=== PATIENT | male | born 1960 | race African-American/Black ===

== ENCOUNTER 2016-09-24 09:21 | Observation (INO) ==
--- NOTE | 2016-09-24 09:48 | EKG Report ---
Stationary ECG Study [facility] ER Test Date: 09/24/2016 9:41:55 AM Pat Name: DARION DOWLING Department: Room: Gender: M Customer Resource Specialist: MORIAH : 1960 Requested by: Brian De La Vega Order Number: [id number] Reading MD: GISSELL OROZCO Intervals [place] Rate: 82 P: 59 [place]: 165 QRS: 29 QRSD: 81 T: 57 QT: 367 QTc: 406 Interpretive Statements SINUS RHYTHM Electronically Signed On 09-24-16 12:10:44 EXERCISER HORSE by GISSELL OROZCO [email or web address]
--- NOTE | 2016-09-24 09:55 | Emergency Department Note ---
Arrival - Arrival ED Nursing Triage Note: c/o chest discomfort/right arm numbness that started today. c/o sharp shooting pain across chest. +SOB, denies n/v, diaphoresis. hx: HTN Mode of Arrival: Ambulatory <AnjelangelesBrian - Last Filed: 09/24/16 09:53> <Duane Rodriguez - Last Filed: 09/24/16 11:05> - Arrival Chief Complaint: Chest Pain Stated Complaint: pain in right side and right arm numb Time Seen by Provider: 09/24/16 09:45 - History of Present Illness HPI Narrative: 56-year-old male presents today with complaint of right sided chest pain. States he felt fine this morning when pain hit him suddenly while at work. Pain began in his right upper quadrant of his abdomen and radiated up into her right chest. States he had numbness in his right arm. Has no complaints of shortness of breath nausea or vomiting. Also denies diaphoresis. Pain in upper abdomen has resolved however continues to have pain or tightness in his mid sternum area (Brian De La Vega) Allergies/Adverse Reactions: Allergies Allergy/AdvReac Type Severity Reaction Status Date / Time No Known Allergies Allergy Verified 09/24/16 09:30 Home Medications: Home Medications Medication Instructions Recorded Confirmed Type Losartan/Hydrochlorothiazide 1 each PO DAILY 09/24/16 09/24/16 History [Losartan-Hctz 100-25 mg Tab] amLODIPine [Norvasc] 10 mg PO DAILY 09/24/16 09/24/16 History Review of System - Review of System 12 point system: reviewed and no additional remarkable complaints except as stated - Review of System Constitutional: Present: as per HPI. Absent: fever Cardiovascular: Present: chest pain Gastrointestinal: Present: abdominal pain. Absent: nausea, vomiting <Brian De La Vega - Last Filed: 09/24/16 09:53> Medical,Surgical,& Family Hx - Medical History Cardio: History of: Hypertension - Social History Smoking Status: Smoker, status unknown Frequency of Alcohol Use: None Type of Drug Use: None <Brian De La Vega - Last Filed: 09/24/16 09:53> Exam <Brian De La Vega - Last Filed: 09/24/16 09:53> <Duane Rodriguez - Last Filed: 09/24/16 11:05> Physical Examination: Gen.: Well-developed, well-nourished in no acute distress HEENT: Normocephalic. Pupils equal round and reactive to light with normal extraocular movement. Ear canals clear without discharge. Tympanic membranes with good light reflex and visualization of bony structures bilaterally. Throat without swelling, erythema or exudate. Neck: Supple without lymphadenopathy or nuchal rigidity Chest: Heart regular rate and rhythm without murmur. Lungs clear to auscultation and equal bilaterally. Abdomen: Soft and nontender without masses. Bowel sounds normoactive. Back: Without CVA or point tenderness. Extremities: Full range of motion. No joint effusion or tenderness Skin: Clean dry and intact (Brian De La Vega) Vital Signs: Vital Signs Temperature 96.7 F L 09/24/16 09:24 Pulse Rate 76 09/24/16 10:20 Respiratory Rate 16 09/24/16 10:20 Blood Pressure 131/91 09/24/16 10:20 O2 Sat by Pulse Oximetry 100 09/24/16 10:20 (Brian De La Vega) (Duane Rodriguez) Course <Brian De La Vega - Last Filed: 09/24/16 09:53> <Duane Rodriguez - Last Filed: 09/24/16 11:05> - Reevaluation(s) Reevaluation #1: Examination by me done at 1045 revealed tenderness to palpation in the right lower anterior chest wall and right upper abdomen. This did reproduce his pain. Patient does have some risk factors with hypertension and smoker and I feel he needs a second set of enzymes and observation overnight and a cardiology evaluation. Patient states he had a stress test done approximately 4 -5 years ago that was normal. Patient denies any chest pain with exertion however he does have dyspnea on exertion. (Duane Rodriguez) Results - Labs CBC & BMP: 09/24/16 09:58 09/24/16 09:58 Lab Results: I have reviewed the patients labs (CPK elevated, troponin negative) - EKG EKG results: interpreted by HOMER, sinus rhythm (nonspecific ST-T changes) - Diagnostic Findings Procedure: Chest x-ray: report reviewed by me (atelectasis) <Duane Rodriguez - Last Filed: 09/24/16 11:05> Disposition <Brian De La Vega - Last Filed: 09/24/16 09:53> Case discussed with: patient <JenniferDuane - Last Filed: 09/24/16 11:05> Clinical Impression: Chest pain, Chest wall pain, possible angina, Hypertension, Tobacco abuse Disposition: Still a Patient Condition: Guarded Additional Instructions: Admitted to the seat cover cutter.
[2016-09-24 10:12] LABS: Basophils # 0.1 10*3/uL (0.0-0.2); Basophils % 1.6 % (0.0-0.8); Eosinophils # 0.2 10*3/uL (0.0-0.87); Hematocrit 46.3 VOL% (42.0-52.0); Hemoglobin 15.5 GM/DL (14.0-18.0); Immature Granulocytes % 0.5 %; Immature Granulocytes Absolute 0.04 #; Lymphocytes # 2.3 10*3/uL (1.4-4.0); Lymphocytes % 31.4 % (21.2-54.2); Mean Corpuscular HGB Conc 33.5 GM/DL (32-36); Mean Corpuscular Hemoglobin 29 PG (27-34); Mean Corpuscular Volume 86.4 FL (87-102); Mean Platelet Volume 10.5 FL (9.6-12.0); Monocytes # 0.8 10*3/uL (0.11-0.8); Monocytes % 10.8 % (1.7-12.7); Neutrophils # 3.9 10*3/uL (1.4-7.4); Neutrophils % 52.7 % (38.7-73.9); Platelet Count 198 10*3/uL (130-400); Red Blood Count 5.36 10*6/uL (3.8-5.5); White Blood Count 7.4 10*3/uL (4.5-13.71)
--- NOTE | 2016-09-24 10:31 | XRay Report ---
Portable chest Date:[09/24/2016] Clinical history: Chest pain Comparison: None Technique: Portable AP sitting chest Findings: The heart is normal in size. Atelectasis at the lung base. Unremarkable mediastinum with degenerative changes. Impression: Atelectasis at the lung bases. PROCEDURE INTERPRETED AT [facility] DEPARTMENT OF RADIOLOGY Final Report Signed by: Dr. Mandy Amos
[2016-09-24 10:37] LABS: Alanine Aminotransferase 53 U/L (16-61); Albumin 4.3 G/DL (3.4-5.0); Alkaline Phosphatase 82 U/L (45-117); Aspartate Amino Transferase 38 U/L (0-37); Bilirubin,Direct < 0.1 MG/DL (0.0-0.20); Bilirubin,Indirect 0.4 MG/DL (0.0-1.0); Blood Urea Nitrogen 11 MG/DL (7-18); Calcium 9.4 MG/DL (8.5-10.1); Glucose 92 MG/DL (74-106); Osmolality,Calculated 279.3 MOS/KG (273-304); Potassium 4.1 MMOL/L (3.5-5.1); Sodium 141 MMOL/L (136-145); Troponin I Only < 0.015 NG/ML (0.00-0.045)
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
--- NOTE | 2016-09-24 13:01 | EKG Report ---
Stationary ECG Study [facility] ER Test Date: 09/24/2016 12:59:02 PM Pat Name: DARION DOWLING Department: Room: Gender: M Ostomy Nurse: DELGADO : 1960 Requested by: Christine Nguyen Order Number: [id number] Reading MD: DARON TAO Intervals [place] Rate: 68 P: 49 [place]: 180 QRS: 29 QRSD: 88 T: 58 QT: 409 QTc: 425 Interpretive Statements SINUS RHYTHM Electronically Signed On 09-24-16 13:28:57 MILK DRYING MACHINE OPERATOR by DARON TAO [email or web address]
[2016-09-24 13:22] LABS: Troponin I Only < 0.015 NG/ML (0.00-0.045)
[2016-09-24] MEDS ORDERED: MAGNESIUM SULF RIDER 4 GM in PREMIX 1 EACH IV PRN (15:19)
[2016-09-24] MEDS ORDERED: ONDANSETRON 4 MG/2 ML VIAL IV PRN (15:19)
[2016-09-24] MEDS ORDERED: MAGNESIUM SULF RIDER 2 GM in PREMIX 1 EACH IV PRN (15:19)
[2016-09-24] MEDS ORDERED: ACETAMINOPHEN 325 MG TABLET PO PRN (15:19)
[2016-09-24] MEDS ORDERED: DOCUSATE SODIUM 100 MG CAPSULE PO PRN (15:19)
[2016-09-24] MEDS ORDERED: ZALEPLON 5 MG CAPSULE PO PRN (15:19)
[2016-09-24] MEDS ORDERED: BISACODYL 5 MG TABLET PO PRN (15:19)
[2016-09-24] MEDS ORDERED: KETOROLAC 30 MG/1 ML VIAL IV STA (15:23)
[2016-09-24] MEDS ORDERED: PNEUMOCOCCAL VACCINE (13 VALENT) 0.5 ML SYRINGE IM ONE (17:35)
[2016-09-24] MEDS: ENOXAPARIN 40 MG/0.4 ML SYRINGE SUBCUT SCH (17:54)
[2016-09-24] MEDS: SODIUM CHLORIDE 0.45% 1,000 ML IV SCH (17:54)
[2016-09-25] MEDS: SODIUM CHLORIDE 0.45% 1,000 ML IV SCH ×2 (01:40→12:47)
[2016-09-25 05:48] LABS: Basophils # 0.1 10*3/uL (0.0-0.2); Basophils % 1.1 % (0.0-0.8); Eosinophils # 0.3 10*3/uL (0.0-0.87); Eosinophils % 5.4 % (0.00-10.9); Hematocrit 42.9 VOL% (42.0-52.0); Hemoglobin 13.9 GM/DL (14.0-18.0); Immature Granulocytes % 0.2 %; Immature Granulocytes Absolute 0.01 #; Lymphocytes # 2.2 10*3/uL (1.4-4.0); Lymphocytes % 35.7 % (21.2-54.2); Mean Corpuscular HGB Conc 32.4 GM/DL (32-36); Mean Corpuscular Hemoglobin 28 PG (27-34); Mean Corpuscular Volume 86.1 FL (87-102); Mean Platelet Volume 10.9 FL (9.6-12.0); Monocytes # 0.7 10*3/uL (0.11-0.8); Monocytes % 11.7 % (1.7-12.7); Neutrophils # 2.8 10*3/uL (1.4-7.4); Neutrophils % 45.9 % (38.7-73.9); Platelet Count 201 10*3/uL (130-400); Red Blood Count 4.98 10*6/uL (3.8-5.5); Red Cell Distribution Width 11.9 % (9.3-17.3); White Blood Count 6.1 10*3/uL (4.5-13.71)
[2016-09-25 06:29] LABS: Albumin 3.3 G/DL (3.4-5.0); Calcium 8.6 MG/DL (8.5-10.1); Osmolality,Calculated 275.7 MOS/KG (273-304); Potassium 4.2 MMOL/L (3.5-5.1); Thyroid Stimulating Hormone 3.19 uIU/ml (0.358-3.74); Total Protein 6.6 G/DL (6.4-8.3); VLDL CHOLESTEROL 79.4 MG/DL
--- NOTE | 2016-09-25 07:26 | EKG Report ---
Stationary ECG Study [facility] Test Date: 09/25/2016 7:24:51 AM Pat Name: DARION DOWLING Department: Room: 275 Gender: M Workforce Consultant: ELIZABETH : 1960 Requested by: Christine Nguyen Order Number: [id number] Reading MD: LISSETH CAZARES Intervals [place] Rate: 66 P: 28 MD: 182 QRS: 26 QRSD: 93 T: 59 QT: 408 QTc: 422 Interpretive Statements SINUS RHYTHM Electronically Signed On 09-25-16 20:47:14 DRILLER HELPER by LISSETH CAZARES [email or web address]
[2016-09-25 08:46] LABS: Troponin I Only < 0.015 NG/ML (0.00-0.045)
[2016-09-25] MEDS ORDERED: PANTOPRAZOLE 40 MG TABLET PO SCH (09:00)
--- NOTE | 2016-09-25 10:31 | Cardiology Progress Note ---
<Christine Ellis E - Last Filed: 09/25/16 10:27> Assessment and Plan - Time spent with patient Time spent with patient: Less than 30 minutes (1) Shoulder pain, right Status: Acute Assessment and plan: Limited ROM. Reproducible to rotation and, in fact, limited due to pain. XRay right shoulder today Current Visit: Yes (2) Elevated CPK Status: Acute Assessment and plan: Improving. COntinue hydration. Current Visit: Yes (3) Chest wall pain Status: Acute Current Visit: Yes (4) Hypertension Status: Chronic Assessment and plan: Added Coreg, low dose this morning, for better DBP control. Current Visit: Yes (5) Tobacco abuse Status: Chronic Assessment and plan: Greater than 5 minutes was spent discussing the merits of tobacco cessation. Verbalized understanding. Current Visit: Yes (6) Chronic GERD Status: Acute Assessment and plan: Acute exacerbation of reflux. Will continue PPI and consult GI Current Visit: Yes Cardiology - PN: Subj Interval history: Patient was admitted for noncardiac chest pain yesterday her chest pain improved after he received Toradol, hypertension. It is easily reproducible in the right rib cage area. Again this is improved overnight. CPK is decreasing, he's being hydrated as well. He has had diastolic blood pressure elevation during the hospital stay. Carvedilol was added this point his medication regimen will continue to monitor. Patient reports significant reflux symptoms. He has a burning sensation mid epigastric area which radiates to his throat. This is worsened with spicy foods and the back of his throat is severely tender and sore with the burning reflux. He has seen a dish cloth inspector in the past and told him his reflex was severe. He is requesting GI evaluation will be happy to oblige. Due to the patient's diastolic hypertension, echocardiogram has been ordered. Awaiting results. XRay right shoulder today due to severe shoulder pain with exertion, limited ROM. Exam (Progress Note) - Constitutional Vitals: Period Temp Pulse Resp BP Sys/Adams Pulse Ox Last 24 Hr 97.8 F-99.9 F 62-97 18-20 126-148/83-104 93-100 Exam: General: Appears well with no apparent distress. Pleasant and cooperative. Appears comfortable. HEENT: PERRL, normocephalic, atraumatic. Mucous membranes moist. No jaundice noted. Conjunctiva moist and clear, sclerae anicteric Neck: No JVD/HJR, no thyromegaly or lymphadenopathy noted. No carotid bruit appreciated Cardiac: Regular rate and rhythm. No murmur rub or gallop. Lungs: Clear to auscultation without accessory muscle use to assist the respiratory pattern. Not requiring oxygen. Abdomen: Soft, bowel sounds normoactive. Nontender and nondistended. No abdominal bruit or thrill noted. No masses noted. Musculoskeletal: No fluid collection. Decreased range of motion is noted right shoulder. Extremities: No clubbing, cyanosis noted. No edema noted. Upper extremity pulses 2+. Lower extremity pulses 2+. Capillary refill less than 3 seconds. Skin: No unusual lesions or rashes. No skin breakdown appreciated. Neuro: Awake, alert and oriented 3. Moves all extremities well without hemiparesis or paralysis. No essential tremor is appreciated. Result/EKG - Labs CBC & BMP: 09/25/16 05:30 09/25/16 05:30 Lab Results: I have reviewed the past 24 hour labs Labs: Laboratory Results - last 24 hr 09/25/16 09/25/16 09/25/16 05:30 05:30 07:57 WBC 6.1 RBC 4.98 Hgb 13.9 L Hct 42.9 MCV 86.1 L MCH 28 MCHC 32.4 RDW 11.9 Plt Count 201 MPV 10.9 Neut % (Auto) 45.9 Lymph % (Auto) 35.7 [place] % (Auto) 11.7 Eos % (Auto) 5.4 Baso % (Auto) 1.1 H Neut # (Auto) 2.8 Lymph # (Auto) 2.2 [place] # (Auto) 0.7 Eos # (Auto) 0.3 Baso # (Auto) 0.1 Immature Gran % 0.2 Nucleated RBC % 0.0 Immature Gran # 0.01 Nucleated RBCs # 0.00 Sodium 138 Potassium 4.2 Chloride 102 Carbon Dioxide 26 Anion Gap 14.2 BUN 14 Creatinine 1.20 GFR Calculation 96 BUN/Creatinine Ratio 11.00 Glucose 100 Calculated Osmolality 275.7 Calcium 8.6 Total Bilirubin 1.00 AST 30 ALT 40 Alkaline Phosphatase 57 Total Creatine Kinase 529 H CK-MB (CK-2) 1.8 Troponin I < 0.015 Total Protein 6.6 Albumin 3.3 L Globulin 3.3 Albumin/Globulin Ratio 1.0 L Triglycerides 397 H Cholesterol 140 LDL Cholesterol 69.0 VLDL Cholesterol 79.4 HDL Cholesterol 28 L Heart Disease Risk Ratio 5.00 TSH 3rd Generation 3.190 - Diagnostic Findings Procedure: Chest x-ray: report reviewed by me - EKG EKG results: interpreted by me EKG shows: sinus rhythm Specialty Discharge - Follow Up or Referrals - Discharge Medications No Action Losartan/Hydrochlorothiazide [Losartan-Hctz 100-25 mg Tab] 1 each PO DAILY amLODIPine [Norvasc] 10 mg PO DAILY <Braeden Butcher - Last Filed: 09/25/16 14:36> Exam (Progress Note) - Constitutional Vitals: Period Temp Pulse Resp BP Sys/Adams Pulse Ox Last 24 Hr 97.8 F-99.9 F 62-97 18-20 126-153/83-104 93-100 Result/EKG - Labs CBC & BMP: 09/25/16 05:30 09/25/16 05:30 Labs: Laboratory Results - last 24 hr 09/25/16 09/25/16 09/25/16 05:30 05:30 07:57 WBC 6.1 RBC 4.98 Hgb 13.9 L Hct 42.9 MCV 86.1 L MCH 28 MCHC 32.4 RDW 11.9 Plt Count 201 MPV 10.9 Neut % (Auto) 45.9 Lymph % (Auto) 35.7 [place] % (Auto) 11.7 Eos % (Auto) 5.4 Baso % (Auto) 1.1 H Neut # (Auto) 2.8 Lymph # (Auto) 2.2 [place] # (Auto) 0.7 Eos # (Auto) 0.3 Baso # (Auto) 0.1 Immature Gran % 0.2 Nucleated RBC % 0.0 Immature Gran # 0.01 Nucleated RBCs # 0.00 Sodium 138 Potassium 4.2 Chloride 102 Carbon Dioxide 26 Anion Gap 14.2 BUN 14 Creatinine 1.20 GFR Calculation 96 BUN/Creatinine Ratio 11.00 Glucose 100 Calculated Osmolality 275.7 Calcium 8.6 Total Bilirubin 1.00 AST 30 ALT 40 Alkaline Phosphatase 57 Total Creatine Kinase 529 H CK-MB (CK-2) 1.8 Troponin I < 0.015 Total Protein 6.6 Albumin 3.3 L Globulin 3.3 Albumin/Globulin Ratio 1.0 L Triglycerides 397 H Cholesterol 140 LDL Cholesterol 69.0 VLDL Cholesterol 79.4 HDL Cholesterol 28 L Heart Disease Risk Ratio 5.00 TSH 3rd Generation 3.190
[2016-09-25] MEDS: CARVEDILOL 6.25 MG TABLET PO SCH ×2 (11:30→21:23)
[2016-09-25] MEDS: LOSARTAN/HCTZ 50-12.5 MG TABLET PO SCH (11:30)
[2016-09-25] MEDS: amLODIPine 10 MG TABLET PO SCH (11:31)
--- NOTE | 2016-09-25 11:51 | Gastrointestinal Consult Note ---
Assessment and Plan (1) Chronic GERD Status: Acute Assessment and plan: 09/25-History of reflux with reports of worsening symptoms, burning in epigastric region, continuous with no relief from OTC meds. Prior history of upper endoscopy in last 6 months. No N/V, dysphagia. Plan and addendum to follow by Dr Park. Current Visit: Yes History of Present Illness Chief complaint: Epigastric pain/burning History of present illness: Mr. Coyle is a 56 year old male who presented to the ER with onset of right sided chest pain. Pt states he was at work when the pain started suddenly. States the pain started in his upper chest and radiated to his RUQ. He reported numbness down his right arm however denies SOB, nausea or vomiting. Pt states he has never had pain like this before. He brought forth that he has a history of several months of epigastric pain/burning most all of the time and has been more continuous over the last several months. He states that the pain is there regardless if he eats or not. He has had upper endoscopy done in the past 6 months in [place] but cannot recall the results other than told he has severe reflux. He denies taking a PPI regularly and takes OTC meds as needed. He denies any dysphagia or pain with swallowing. Denies having to regurgitate food. Denies any weight loss, fever or chills. Denies any melena or hematochezia. States that the pain in his RUQ has not occurred since onset on yesterday morning however he was tender with palpation on exam at that time. He did have relief after receiving Toradol as well. Denies history of gallbladder trouble in the past. Cardiac workup is negative thus far. Home Medications Medication Instructions Recorded Confirmed Type Losartan/Hydrochlorothiazide 1 each PO DAILY 09/24/16 09/24/16 History [Losartan-Hctz 100-25 mg Tab] amLODIPine [Norvasc] 10 mg PO DAILY 09/24/16 09/24/16 History Allergies Allergy/AdvReac Type Severity Reaction Status Date / Time No Known Allergies Allergy Verified 09/24/16 09:30 Medical,Surgical,& Family Hx - Medical History Cardio: History of: Hypertension - Social History Smoking Status: Unknown if ever smoked Frequency of Alcohol Use: None Type of Drug Use: None 12 point system: reviewed and no additional remarkable complaints except as stated - Constitutional Constitutional: Present: as per HPI - EENT Eyes: Present: as per HPI Ears: Present: as per HPI Nose, mouth and throat: Present: as per HPI - Cardiovascular Cardiovascular: Present: as per HPI, chest pain at rest - Respiratory Respiratory: Present: as per HPI - Gastrointestinal Gastrointestinal: Present: as per HPI, dyspepsia, heartburn - Genitourinary Genitourinary: Present: as per HPI - Musculoskeletal Musculoskeletal: Present: as per HPI - Neurological Neurological: Present: as per HPI - Psychiatric Psychiatric: Present: as per HPI - Endocrine Endocrine: Present: as per HPI - Hematologic/Lymphatic Hematologic/Lymphatic: Present: as per HPI Exam - Constitutional Vitals: Period Temp Pulse Resp BP Sys/Adams Pulse Ox Last 24 Hr 97.8 F-99.9 F 62-97 18-20 126-148/83-104 93-100 General appearance: normal weight, no acute distress - Head Head exam: Present: normal inspection, normocephalic - Eye Eye exam: Present: other (lids and conjunctiva unremarkable). Absent: scleral icterus - ENT ENT exam: Present: normal exam, normal oropharynx - Neck Neck exam: Present: normal inspection - Respiratory Respiratory exam: Present: clear to auscultation bilaterally. Absent: rales, rhonchi, wheezes - Cardiovascular Cardiovascular exam: Present: regular rate and rhythm. Absent: diastolic murmur , JVD, systolic murmur - GI/Abdominal GI/Abdominal exam: Present: normal bowel sounds, soft. Absent: ascites, distended, mass, organomegaly, tenderness - Extremities Exam Extremities exam: Present: normal inspection, full ROM - Back Exam Back exam: Present: normal inspection - Neurological Exam Neurological exam: Present: alert, oriented X3 - Psychiatric Psychiatric exam: Present: normal affect, normal mood - Skin Skin exam: Present: normal color, warm, dry Results - Labs CBC & BMP: 09/25/16 05:30 09/25/16 05:30 Lab Results: I have reviewed the past 24 hour labs Specialty Discharge - Follow Up or Referrals - Discharge Medications No Action Losartan/Hydrochlorothiazide [Losartan-Hctz 100-25 mg Tab] 1 each PO DAILY amLODIPine [Norvasc] 10 mg PO DAILY
--- NOTE | 2016-09-25 14:28 | XRay Report ---
XR shoulder 1V RT Indication: Limited ROM and pain Comparison: None Technique: Single frontal view of the right shoulder Findings: Moderate degenerative change of the acromioclavicular joint. No acute fracture demonstrated. IMPRESSION: As above. PROCEDURE INTERPRETED AT [facility] DEPARTMENT OF RADIOLOGY Final Report Signed by: Dr Sylvester Nolan
[2016-09-25] MEDS ORDERED: IBUPROFEN 200 MG TABLET PO PRN (14:46)
[2016-09-25] MEDS: ENOXAPARIN 40 MG/0.4 ML SYRINGE SUBCUT SCH (15:51)
--- NOTE | 2016-09-25 18:40 | ECHO Report ---
Denia Coyle 09/25/2016 Exam Date: 13:22 Referring Physician: Meghana Holland Technologist: BETHANY Age: 56 Ht (in): Wt (lb): MExam Location: [facility] Gender: Echo [id number]: Chest pain, unspecified, Essential Indications: hypertension, Nicotine dependence, unspecified, uncomplicated, GERD, Elevated CPK BP: / HR: SinusRhythm: Technical Quality: IMPRESSIONS Normal left ventricular size, with moderate concentric hypertrophy, without wall motion abnormalities. Estimated left ventricular ejection fraction 60%. Grade 1 diastolic dysfunction. Mild biatrial enlargement. MEASUREMENTS (Male / Female) Normal Values 2D ECHO LV Diastolic Diameter PLAX 3.5 cm 4.2 - 5.9 / 3.9 - 5.3 cm LV Systolic Diameter PLAX 2.0 cm LV Fractional Shortening PLAX 44.5 % IVS Diastolic Thickness 1.2 cm 0.6 - 1.0 / 0.6 - 0.9 cm LVPW Diastolic Thickness 1.2 cm 0.6 - 1.0 / 0.6 - 0.9 cm RV Internal Dim ED PLAX 2.4 cm Aortic Root Diameter 3.3 cm LA Systolic Diameter LX 3.9 cm 3.0 - 4.0 / 2.7 - 3.8 cm FINDINGS Left Ventricle Normal left ventricular size, with moderate concentric hypertrophy, without wall motion abnormalities. Estimated left ventricular ejection fraction 60%. Grade 1 diastolic dysfunction. Right Ventricle The right ventricle is normal in size and function. Right Atrium The right atrium is mildly dilated. Left Atrium The left atrium is mildly dilated. Mitral Valve Morphologically normal mitral valve without significant stenosis or prolapse. There is no mitral regurgitation. Aortic Valve Morphologically normal aortic valve without significant sclerosis or stenosis. There is no aortic regurgitation. Tricuspid Valve Morphologically normal tricuspid valve without significant stenosis or regurgitation. Pulmonary artery systolic pressure cannot be estimated due to lack of signal. Pulmonic Valve Morphologically normal pulmonic valve without significant stenosis. There is no pulmonic regurgitation. Pericardium Normal pericardium without effusion. Aorta Normal ascending aorta dimension. Braeden Butcher (Electronically Signed) 25 September 2016 Final Date: 18:39
--- NOTE | 2016-09-25 19:11 | Orthopedic Consult Note ---
History of Present Illness Chief complaint: right shoulder pain History of present illness: Mr. Coyle is a 56 year old male who was admitted yesterday for cardiac workup after developing first right sided chest wall pain and then right shoulder pain. States that he initially felt numbness and tingling. He states that over the last 24 hours his symptoms have improved significantly. 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 He does no heavy lifting. There's been no particular change in activity over the last several days. He denies any fevers or chills. He does not have any history of gout. He has had some mild right shoulder pain on and off generally resolves and is relieved with over-the- counter analgesics. He's currently complaining mostly pain with overhead lifting of his shoulder. Exam shows no pain with range of motion of his neck. Axial loading is negative. Has full passive range of motion of the shoulder. He does have pain with motion over the plane of his shoulder. Impingement signs are mildly positive. Upper extremity motors are all 5 out of 5. Pulses palpable. Full hand range of motion. He's tender over his right lateral chest wall distally. No masses are palpable. He is nontender over his before meals joint. He slightly tender over subacromial joint. Cross body adduction test is negative. Radiographs two-view shoulder show before meals degenerative changes. He has normal glenohumeral joint and subacromial space. Impression: Acute onset right shoulder pain, etiology unclear. Plan: Not sure how to put together the chest wall pain and shoulder pain together. Possibly could represent a gouty attack. I've advised checking a uric acid, C-reactive protein and sedimentation rate. Home Medications Medication Instructions Recorded Confirmed Type Losartan/Hydrochlorothiazide 1 each PO DAILY 09/24/16 09/24/16 History [Losartan-Hctz 100-25 mg Tab] amLODIPine [Norvasc] 10 mg PO DAILY 09/24/16 09/24/16 History Allergies Allergy/AdvReac Type Severity Reaction Status Date / Time No Known Allergies Allergy Verified 09/24/16 09:30 12 point system: reviewed and no additional remarkable complaints except as stated Medical,Surgical,& Family Hx - Medical History Cardio: History of: Hypertension - Social History Smoking Status: Unknown if ever smoked Frequency of Alcohol Use: None Type of Drug Use: None Exam - Constitutional Vitals: Period Temp Pulse Resp BP Sys/Adams Pulse Ox Last 24 Hr 97.8 F-99.9 F 62-97 18-20 121-153/83-99 93-96 Results - Labs CBC & BMP: 09/25/16 05:30 09/25/16 05:30 Assessment and Plan (1) Shoulder pain, right Status: Acute Current Visit: Yes Qualifiers: Chronicity: acute Qualified Code(s): M25.511 - Pain in right shoulder Specialty Discharge - Follow Up or Referrals - Discharge Medications No Action Losartan/Hydrochlorothiazide [Losartan-Hctz 100-25 mg Tab] 1 each PO DAILY amLODIPine [Norvasc] 10 mg PO DAILY
[2016-09-25] MEDS: PANTOPRAZOLE 40 MG TABLET PO SCH (21:23)
[2016-09-26 08:30] VITALS: BP 131/87
--- NOTE | 2016-09-26 09:09 | Discharge Summary ---
Hospital Course - Hospital Course Hospital Course: Mr. Lynne was admitted from the emergency Department [facility] for uncontrolled diastolic hypertension. He also had vague complaints of atypical chest pain. Blood pressure medications were adjusted and his vital signs came under better control. He underwent evaluation by Dr. Park for known severe reflux. Patient had not been taking his PPI. He was started on Protonix twice a day with expectations to follow-up outpatient in approximately 6 weeks to reevaluate the reflux symptoms. He underwent echocardiogram which revealed an ejection fraction of 60% without significant valvular abnormality. He also underwent x-ray of his right shoulder which revealed moderate degenerative changes. Patient's pain improved with injection of Toradol. Having felt that maximal medical therapy, patient is being discharged home in stable condition. He'll be given a follow-up appointment with Dr. Park approximately 6 weeks. He will also be given a follow-up appointment was with Dr. Pérez in approximately 1 month. Patient CPK was elevated on admission. He was hydrated and this improved. Patient was not taking any medications to contribute to the elevation. He'll follow with his primary care provider for continued following of this level. New medications include: Coreg 6.25 mg orally twice a day. Protonix 40 mg orally twice a day. - Time spent with patient Time with patient DS: Less than 30 minutes Diagnosis - Discharge Diagnosis (1) Shoulder pain, right Status: Chronic (2) Elevated CPK Status: Chronic (3) Chest wall pain Status: Resolved (4) Hypertension Status: Chronic (5) Tobacco abuse Status: Chronic (6) Chronic GERD Status: Chronic Discharge Plan - Discharge Data Disposition: Disch To Home/Self Care Condition at Discharge: Stable Discharge Diet: advance to your usual diet Activity: resume usual activities as tolerated Hygiene: no restrictions Weight Bearing at Discharge: full weight bearing Driving: no restrictions Contact your physician if you experience:: fever over 101, Difficulty voiding, Redness or swelling, Nausea/Vomiting, Shortness of breath, Bleeding, pain uncontrolled by pain medications - Discharge Medications New Carvedilol [Coreg] 6.25 mg PO BID #60 tablet Pantoprazole Tab [Protonix Tab] 40 mg PO BID #60 tablet Continue Losartan/Hydrochlorothiazide [Losartan-Hctz 100-25 mg Tab] 1 each PO DAILY amLODIPine [Norvasc] 10 mg PO DAILY - Follow Up or Referral Follow Up: Benny Pérez MD [Physician] - 1 Month () Matt Park MD [Physician] - (6 weeks) - Forms/Instructions Additional Discharge Instructions: Please have patient follow-up with PCP in 2 weeks for labs: CPK, BMP, Mg. If he does not have local PCP, please get appointment to see Dr. Sr. Please document who he will see, date and time with labs. Thanks Exam - Constitutional Vitals: Period Temp Pulse Resp BP Sys/Adams Pulse Ox Last 24 Hr 96.7 F-98.7 F 65-91 16-20 121-153/87-95 91-96 Exam: General: Appears well with no apparent distress. Pleasant and cooperative. Appears comfortable. HEENT: PERRL, normocephalic, atraumatic. Mucous membranes moist. No jaundice noted. Conjunctiva moist and clear, sclerae anicteric Neck: No JVD/HJR, no thyromegaly or lymphadenopathy noted. No carotid bruit appreciated Cardiac: Regular rate and rhythm. No murmur rub or gallop. Lungs: Clear to auscultation without accessory muscle use to assist the respiratory pattern. Not requiring oxygen. Abdomen: Soft, bowel sounds normoactive. Nontender and nondistended. No abdominal bruit or thrill noted. No masses noted. Musculoskeletal: No fluid collection. Decreased range of motion is noted right shoulder. Extremities: No clubbing, cyanosis noted. No edema noted. Upper extremity pulses 2+. Lower extremity pulses 2+. Capillary refill less than 3 seconds. Skin: No unusual lesions or rashes. No skin breakdown appreciated. Neuro: Awake, alert and oriented 3. Moves all extremities well without hemiparesis or paralysis. No essential tremor is appreciated. Discharge Results Labs on day of discharge: Labs from last 24 hours 09/25/16 09/25/16 09/25/16 19:37 19:37 19:37 ESR Westergren 11 Uric Acid 7.5 H C-Reactive Protein 0.80 H - Imaging and Cardiology Cardiology Procedure: report reviewed by me Procedure: Chest x-ray: report reviewed by me, Ultrasound: report reviewed by me DS: Provider Date of admission: 09/24/16 15:19 Primary care physician: . No PCP Attending physician on admission: Benny Pérez MD Consults: 09/24/16 17:08 Consult to Pharmacy [CONS] Routine Reason for Pharmacy Consult: Adjust Meds Renal Funct 09/25/16 10:24 Consult to Physician [CONS] Routine Comment: severe reflux (currently NPO) Consulting Provider: Michele Pearson 09/25/16 14:43 Consult to Physician [CONS] Routine Comment: Consulting Provider: Consult to Specialist Group: Orthopedic When should Consulting Provider be notified: Now Person Notified: gadiel Date Notified: 09/25/16 Time Notified: 14:56 09/25/16 19:06 OT [Consult to Occupational Therapy] [CONS] Routine Reason for Occupational Therapy: Evaluate and Treat Start Therapy: Tomorrow Consult Comment: shoulder HEP Discharging clinician: Christine Ellis NP Expected date of discharge: 09/26/16
[2016-09-26] MEDS: LOSARTAN/HCTZ 50-12.5 MG TABLET PO SCH (09:20)
[2016-09-26] MEDS: amLODIPine 10 MG TABLET PO SCH (09:21)
[2016-09-26] MEDS: PANTOPRAZOLE 40 MG TABLET PO SCH (09:21)
[2016-09-26] MEDS: CARVEDILOL 6.25 MG TABLET PO SCH (09:21)
[2016-09-26] MEDS ORDERED: INFLUENZA VIRUS VACCINE 0.5 ML SYRINGE IM ONE (10:00)
== END 2016-09-26 11:30 | disposition home or self-care (01) ==
LOC: N.EDINP 09:21 → N.ED 09:21 → N.TELES 17:07
PROVIDERS: ADMIT Internal Medicine Cardiovascular Disease; ATTEND Internal Medicine Cardiovascular Disease